=== PATIENT | female | born 1955 | race Hispanic/Latino ===

== ENCOUNTER 2020-10-17 13:15 | Outpatient (CLI) | payer BC ==
--- NOTE | 2020-10-17 14:08 | BD ---
EXAM: Bone densitometry using DEXA HISTORY: 64 yo female. Screening for postmenopausal osteoporosis FINDINGS: L1--bone mineral density 0.996 g/sq cm; T score 0.1 ; Z score 1.6 L2--bone mineral density 0.996 g/sq cm; T score -0.3 ; Z score 1.4 L3--bone mineral density 1.023 g/sq cm; T score -0.6 ; Z score 1.3 L4--bone mineral density 1.104 g/sq cm; T score 0.4 ; Z score 2.3 Total L1-L4--bone mineral density 1.035 g/sq cm; T score -0.1 ; Z score 1.6 Left femoral neck--bone mineral density0.857; T score 0.1 ; Z score 1.6 Total proximal left femur--bone mineral density 1.204; T score 2.1 ; Z score 3.4 IMPRESSION: Normal BMD
--- NOTE | 2020-10-17 14:19 | RAD ---
PORTABLE CHEST ONE VIEW: 10/17/20 at 2:07 p.m. HISTORY: Nonspecific abnormal finding of lung alves. Shortness of breath. COMPARISON: There are no previous chest radiographs for comparison. FINDINGS: The heat size is normal. The aorta is tortuous. The lungs are expanded without lobar consolidation, p neumothoraces, or pleural effusions. IMPRESSION: No acute process. POS: OFF
--- NOTE | 2020-10-17 15:34 | MMO ---
Bilateral MAMMO Bilat Screen [facility]. CLINICAL HISTORY: Patient is 64 years old and is seen for screening. The patient has no family history of breast cancer. The patient has no personal history of cancer. VIEWS: The views performed were: bilateral craniocaudal with tomosynthesis and bilateral mediolateral oblique with tomosynthesis. FILMS COMPARED: The present examination has been compared to prior imaging studies performed at [facility] on 06/02/2012 and 11/02/2017. This study has been interpreted with the assistance of computer-aided detection. MAMMOGRAM FINDINGS: There are scattered fibroglandular densities. Benign calcifications are noted bilaterally. There are no suspicious masses, suspicious calcifications, or new areas of architectural distortion. IMPRESSION: THERE IS NO MAMMOGRAPHIC EVIDENCE OF MALIGNANCY. A ROUTINE FOLLOW-UP MAMMOGRAM IN 1 YEAR IS RECOMMENDED. THE RESULTS OF THIS EXAM WERE SENT TO THE PATIENT. ACR BI-RADS Category 2 - Benign finding MAMMOGRAPHY NOTE: 1. A negative mammogram report should not delay a biopsy if a dominant of clinically suspicious mass is present. 2. Approximately 10% to 15% of breast cancers are not detected by mammography. 3. Adenosis and dense breasts may obscure an underlying neoplasm. Reported by: ROCKY WHYTE MD Electonically Signed: [id number]
== END 2020-10-17 13:16 | disposition home or self-care (01) ==
LOC: BICMAMMO 13:15
PROVIDERS: ATTEND Family Medicine
DX: Z12.31 Encounter for screening mammogram for malignant neoplasm of breast (principal); Z13.820 Encounter for screening for osteoporosis; R91.8 Other nonspecific abnormal finding of lung field; Z78.0 Asymptomatic menopausal state
CPT/HCPCS: 71045; 77063; 77067; 77080

== ENCOUNTER 2025-02-23 11:32 | Outpatient (CLI) | payer MEDICARE, OTHER | END 2025-02-23 11:33 | disposition home or self-care (01) | LOC: BICRAD 11:32 | PROVIDERS: ATTEND Family Medicine | DX: M54.50 Low back pain, unspecified (principal); M25.562 Pain in left knee; M25.561 Pain in right knee; M17.0 Bilateral primary osteoarthritis of knee; M47.816 Spondylosis without myelopathy or radiculopathy, lumbar region | CPT/HCPCS: 72100 ==

== ENCOUNTER 2025-06-27 11:29 | Day surgery (SDC) | payer OTHER ==
[2025-06-27] MEDS ORDERED: diphenhydrAMINE 25 MG CAP ONE (13:07)
[2025-06-27] MEDS ORDERED: Acetaminophen 500 MG TAB ONE (13:07)
[2025-06-27] MEDS: Acetaminophen 500 MG TAB PO SCH (13:08)
[2025-06-27] MEDS: diphenhydrAMINE 25 MG CAP PO SCH (13:08)
[2025-06-27 17:22] VITALS: BP 116/58; TEMP 98.3
== END 2025-06-27 17:28 | disposition home or self-care (01) ==
LOC: ONC/OP 11:29
PROVIDERS: ATTEND Family Medicine
DX: D46.9 Myelodysplastic syndrome, unspecified (principal)
CPT/HCPCS: 36430; 86850; 86900; 86901; G0463; P9035; 99212

== ENCOUNTER 2025-07-04 10:26 | Day surgery (SDC) | payer OTHER ==
[2025-07-04] MEDS ORDERED: Acetaminophen 500 MG TAB ONE (11:50)
[2025-07-04] MEDS: Acetaminophen 500 MG TAB PO SCH (11:51)
[2025-07-04] MEDS ORDERED: diphenhydrAMINE 25 MG CAP ONE (11:51)
[2025-07-04] MEDS: diphenhydrAMINE 25 MG CAP PO SCH (11:51)
[2025-07-04 15:57] VITALS: BP 124/59; TEMP 98.3
== END 2025-07-04 15:58 | disposition home or self-care (01) ==
LOC: ONC/OP 10:26
PROVIDERS: ATTEND Student in an Organized Health Care Education/Training Program
DX: D46.9 Myelodysplastic syndrome, unspecified (principal)
CPT/HCPCS: 36430; 86850; 86900; 86901; P9035

== ENCOUNTER 2025-07-25 10:30 | Day surgery (SDC) | payer OTHER ==
[2025-07-25] MEDS ORDERED: Acetaminophen 500 MG TAB ONE (11:52)
[2025-07-25] MEDS ORDERED: diphenhydrAMINE 25 MG CAP ONE (11:52)
[2025-07-25] MEDS: diphenhydrAMINE 25 MG CAP PO SCH (11:55)
[2025-07-25] MEDS: Acetaminophen 500 MG TAB PO SCH (11:55)
[2025-07-25 14:49] VITALS: BP 128/60; TEMP 98.6
== END 2025-07-25 15:04 | disposition home or self-care (01) ==
LOC: ONC/OP 10:30
PROVIDERS: ATTEND Student in an Organized Health Care Education/Training Program
DX: D69.6 Thrombocytopenia, unspecified (principal); D46.9 Myelodysplastic syndrome, unspecified
CPT/HCPCS: 36430; 86850; 86900; 86901; P9035

== ENCOUNTER → 2025-07-28 | Day surgery (SDC) | payer OTHER ==
[~2025-07-28] MED LIST: Acetaminophen 500 MG TAB PO SCH; diphenhydrAMINE 25 MG CAP PO SCH
[2025-07-28 16:27] VITALS: BP 121/59; TEMP 98.4
== END ==
LOC: ONC/OP 10:50
PROVIDERS: ATTEND Family Medicine
DX: D46.9 Myelodysplastic syndrome, unspecified (principal)
CPT/HCPCS: 36430; 86850; 86900; 86901; P9035

== ENCOUNTER 2025-08-01 09:34 | Day surgery (SDC) | payer OTHER ==
[2025-08-01] MEDS ORDERED: Acetaminophen 500 MG TAB PO SCH (10:00)
[2025-08-01] MEDS ORDERED: diphenhydrAMINE 25 MG CAP PO SCH (10:00)
[2025-08-01 14:45] VITALS: BP 138/65; TEMP 98.4
== END 2025-08-01 14:45 | disposition home or self-care (01) ==
LOC: ONC/OP 09:34
PROVIDERS: ATTEND Family Medicine
DX: D46.9 Myelodysplastic syndrome, unspecified (principal)
CPT/HCPCS: 36430; 86850; 86900; 86901; 86920; P9016; P9035

== ENCOUNTER 2025-08-04 11:59 | Day surgery (SDC) | payer OTHER ==
[2025-08-04] MEDS ORDERED: Acetaminophen 500 MG TAB ONE (12:39)
[2025-08-04] MEDS: diphenhydrAMINE 25 MG CAP PO SCH (12:46)
[2025-08-04] MEDS: Acetaminophen 500 MG TAB PO SCH (12:46)
[2025-08-04 13:42] VITALS: BP 118/59; TEMP 98.2
[2025-08-04] MEDS ORDERED: FLU (Fluad Triv) 25-26 (65UP)PF 45 MCG/0.5 ML Syringe IM ONE (14:00)
[2025-08-04] MEDS ORDERED: PNEUMOC 20-VAL CONJ-DIP CRM/PF 0.5 ML SYRINGE IM ONE (14:00)
== END 2025-08-04 13:52 | disposition home or self-care (01) ==
LOC: ONC/OP 11:59
PROVIDERS: ATTEND Family Medicine
DX: D69.6 Thrombocytopenia, unspecified (principal)
CPT/HCPCS: 36430; 86850; 86900; 86901; P9035

== ENCOUNTER 2025-09-05 11:34 | Emergency (ER) | payer OTHER ==
[2025-09-05 12:44] LABS: INR-International Normal Ratio 1.1; Prothrombin Time 14.5 sec (12.0-14.7)
[2025-09-05 12:46] LABS: PTT 35.0 sec (22.9-36.1)
[2025-09-05 12:48] LABS: ALT (SGPT) 18 U/L (Less than 34); AST (SGOT) 19 U/L (11-34); Albumin 3.7 g/dL (3.1-4.5); Alkaline Phosphatase 73 U/L (40-110); Anion Gap 13 mmol/L (10-20); BUN (Urea Nitrogen) 12 mg/dL (9.8-20.1); Bilirubin, Total 0.7 mg/dL (0.3-1.2); Calc. Creatinine Clearance 0 mL/min (70-130); Calcium 8.7 mg/dL (7.8-10.44); Carbon Dioxide 26 mmol/L (23-31); Chloride 101 mmol/L (98-107); Globulin 2.5 g/dL (2.4-3.5); Glucose 277 mg/dL (80-115); Potassium 4.4 mmol/L (3.5-5.1); Sodium 136 mmol/L (136-145)
[2025-09-05 12:55] LABS: Hematocrit 19.4 % (36.0-47.0); Hemoglobin 6.4 g/dL (12.0-16.0); Mean Corpuscular Hemoglobin 27.9 pg (27.0-31.0); Mean Corpuscular Volume 84.7 fL (78.0-98.0); Platelet Count 2 10x3/uL (130-400); Red Blood Cell (RBC) Count 2.29 mill/uL (4.20-5.40); White Blood Cell (WBC) Count 0.72 10x3/uL (4.8-10.8)
[2025-09-05 13:26] LABS: Anisocytosis SLIGHT = 6-15 cells HPF (0-5); Dohle Bodies SLIGHT; Nucleated RBC (Manual Ct) 6 % (0); Ovalocytes SLIGHT = 2-5 cells HPF (0-1); Platelet Adequacy Comment Significant Decrease; Polychromasia SLIGHT = 2-3 cells HPF (0-2); Schistocytes SLIGHT = 2-5 cells HPF (0-1); Smudge Cells 7.7 %; Toxic Granulation SLIGHT
[2025-09-05] MEDS ORDERED: Iopamidol-370 76% 500 ML MDV (1 ML CHARGE) ONE (13:33)
== END 2025-09-05 21:56 | disposition home or self-care (01) ==
LOC: ERS 11:34
DX: D46.9 Myelodysplastic syndrome, unspecified (principal); D69.6 Thrombocytopenia, unspecified
CPT/HCPCS: 36430; 71275; 80053; 84484; 85025; 85610; 85730; 86850; 86900; 86901; 86920; 87428; 93005; P9035; 85060; P9016

== ENCOUNTER 2025-09-08 11:03 | Day surgery (SDC) | payer OTHER ==
[2025-09-08] MEDS: Acetaminophen 500 MG TAB PO SCH (12:33)
[2025-09-08] MEDS: diphenhydrAMINE 25 MG CAP PO SCH (12:34)
[2025-09-08 15:40] VITALS: BP 110/53; TEMP 98.5
== END 2025-09-08 15:47 | disposition home or self-care (01) ==
LOC: ONC/OP 11:03
PROVIDERS: ATTEND Family Medicine
DX: D64.9 Anemia, unspecified (principal); D69.6 Thrombocytopenia, unspecified
CPT/HCPCS: 36430; 86850; 86900; 86901; 86920; J1642; P9016; P9035